=== PATIENT | female | born 1930 | race Caucasian/White ===

== ENCOUNTER 2017-04-30 14:18 | Inpatient (IN) | payer MEDICARE, OTHER ==
[~2017-04-30] VITALS: Ht 149.9 cm; Wt 49.9 kg
--- NOTE | 2017-04-30 14:30 | NUR ---
PATIENT HERE FROM [facility], SHE IS DEPRESSED, SHE IS TEARFUL. SHE IS ANGRY THAT STAFF TOOK HER SHOE LACES. SHE SAYS HER SONS NEVER SEE HER AND THEY ARE USING HER AND TOOK ALL OF HER THINGS, SHE IS CRYING AND SAYING HER SONS TOOK HER ANTIQUES. PATIENT SAYS I WILL LOOK STUPID WITHOUT SHOELACES. SHE IS NEGATIVE. SHE IS CONCERNED THAT HER LOOKS ARE STUPID NOW. PATIENT IS CONFUSED SHE IS ORIENTED TO SELF, SHE DOESN'T KNOW THE TIME OR THE YEAR. SHE IS SAYING NEGATIVE THINGS ABOUT [facility]. SHE HAS SOME SCARS ON HER RIGHT LOWER ABD FROM HERNIA REPAIR. SHE HAS SOME MISSING TOENAILS. SHE IS SAD AND SAYS SHE WISHES SHE WOULD , BUT DENIES THAT SHE EVER SAID SHE WOULD TAKE ALL OF HER MEDICATIONS. SHE SAYS SHE JUST WANTS TO LAY IN BED ALL DAY, DOES NOT WANT TO SOCIALIZE, DOES NOT WANT TO MAKE NEW FRIENDS. SHE MISSES [facility] IN [place]. SHE IS ALREADY SAYING "I'LL JUST STAY IN BED, IN MY ROOM AND STARVE" EXPLAINED TO HER THAT HERE SHE IS NOT ABLE TO STAY IN BED. SHE GOT VERY ANGRY AND SAID "YOU WANNA BET" DID NOT ARGUE WITH PATIENT SHE IS MUMBLING UNDER HER BREATH ABOUT HER SHOES.
[2017-04-30 14:55] VITALS: BP 127/64; BMI 22.1
[2017-04-30 15:00] VITALS: BMI 22.1
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
[2017-04-30] MEDS ORDERED: FUROSEMIDE20 MG PO (16:51)
[2017-04-30] MEDS ORDERED: BUSPAR10 MG PO (16:51)
[2017-04-30] MEDS ORDERED: LIPITOR80 MG PO (16:51)
[2017-04-30] MEDS ORDERED: FOLIC ACID1 MG PO (16:52)
[2017-04-30] MEDS ORDERED: ATIVAN0.5 MG PO (16:52)
[2017-04-30] MEDS ORDERED: LAMICTAL100 MG PO (16:53)
[2017-04-30] MEDS ORDERED: COREG12.5 MG PO (16:54)
[2017-04-30] MEDS ORDERED: REMERON15 MG PO (16:54)
[2017-04-30] MEDS ORDERED: ARICEPT5 MG PO (16:55)
[2017-04-30] MEDS ORDERED: VITAMIN B-12500 MC1 PO (16:55)
[2017-04-30] MEDS ORDERED: SENNA8.6 MG PO (16:56)
[2017-04-30] MEDS ORDERED: BAYER CHEWABLE81 MG PO (16:56)
[2017-04-30] MEDS ORDERED: COUMADIN2.5 MG PO (16:58)
[2017-04-30] MEDS ORDERED: ECOTRIN325 MG PO (16:58)
[2017-04-30] MEDS ORDERED: RESTASIS EYE DR30 EA EACH EYE (17:01)
[2017-04-30] MEDS ORDERED: MILK OF MAGNESI30 ML PO (17:02)
[2017-04-30] MEDS ORDERED: ZOFRAN4 MG PO (17:02)
[2017-04-30] MEDS ORDERED: VITAMIN D2 (17:04)
[2017-04-30 17:33] LABS: BASOPHILS 0.3 % (0-2); EOSINOPHILS 1.2 % (0-7); HEMATOCRIT 38.8 % (36.0-48.0); HEMOGLOBIN 12.7 g/dL (12-16); IMMATURE GRANULOCYTES 0.3 % (0-5); LYMPHOCYTES 32.6 % (15-50); MCH 34.1 pg (26.0-34.0); MCHC 32.7 g/dL (31.0-37.0); MCV 104.3 fL (80.0-100.0); MEAN PLATELET VOLUME 10.7 fL (7.4-10.4); NEUTROPHILS 52.6 % (40-80); PLATELET COUNT 132 10x3/uL (130-400); RBC 3.72 10x6/uL (4.00-5.40); RDW 14.5 % (11.5-14.5); WBC 7.2 10x3/uL (4.8-10.8)
[2017-04-30 17:57] LABS: ALBUMIN 2.5 g/dL (3.4-5.0); BILIRUBIN - TOTAL 0.6 mg/dL (0.2-1.3); CARBON DIOXIDE 26.5 mmol/L (21.0-32.0); CHOL - HDL RATIO 2.2 ratio (2.3-4.1); POTASSIUM - SERUM 4.5 mmol/L (3.5-5.1); PROTEIN - SERUM 6.9 g/dL (6.4-8.2); THYROID STIMULATING HORMONE 0.55 uIU/mL (0.36-3.74)
[2017-04-30 18:06] LABS: CALCIUM 8.9 mg/dL (8.5-10.1); CREATININE - SERUM 1.1 mg/dL (0.6-1.3)
[2017-04-30 19:29] LABS: APPEARANCE CLEAR (CLEAR); BILIRUBIN NEGATIVE (NEGATIVE); COLOR YELLOW (YELLOW); GLUCOSE NEGATIVE (NEGATIVE); KETONE NEGATIVE (NEGATIVE); LEUKOCYTE ESTERASE NEGATIVE (NEGATIVE); NITRITE NEGATIVE (NEGATIVE); PROTEIN NEGATIVE (NEGATIVE); UROBILINOGEN NORMAL (NORMAL)
[2017-04-30 20:02] VITALS: BP 120/67
[2017-04-30 21:23] VITALS: BP 120/67
--- NOTE | 2017-05-01 00:27 | NUR ---
B) Recieved patient in her room in bed, alert and oriented to self, calm and cooperative this shift, I) Administered perscribed medications, monitored for safety and falls, R) medication compliant, resting now quietly in bed, P) Continue plan of care.
[2017-05-01 06:54] LABS: INR 1.59 (0.85-1.17); PROTIME 18.9 SECONDS (11.6-15.0)
[2017-05-01 09:21] VITALS: BP 115/68
[2017-05-01 10:31] VITALS: BMI 22.0
--- NOTE | 2017-05-01 11:05 | NUR ---
B) PATIENT IS AWAKE AND ALERT, SHE PRESENTED SMILING AND HAPPY THIS AM, BUT NOW SHE IS IRRITABLE. SHE DOES NOT WANT TO PARTICIPATE IN GROUPS, BUT SHE IS DOING IT BEGRUDGINGLY. PATIENT AMBULATES WITH A WALKER. I) PROVIDE PRESCRIBED MEDS. R) PATIENT IS COMPLIANT WITH MEDS AND UNIT MILIEU. P) CONTINUE POC.
[2017-05-01 18:53] VITALS: BP 101/51
--- NOTE | 2017-05-01 22:31 | NUR ---
B) Recieved patient in her room, alert and oriented to self, calm and cooperative this shift, I) Administered perscribed medications, monitored for falls and safety, R) Medication compliant, quiet and resting, P) Continue plan of care.
[2017-05-02 07:25] LABS: RAPID PLASMA REAGIN Non Reactive (Non Reactive); VITAMIN D 25 HYDROXY 49.3 ng/mL (30.0-100.0)
[2017-05-02 08:20] LABS: FOLATE (FOLIC ACID) - SERUM >20.0 ng/mL (>3.0)
[2017-05-02 09:11] VITALS: BP 114/60
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
--- NOTE | 2017-05-02 11:06 | NUR ---
B) PATIENT IS AWAKE AND ALERT AND SHE IS PLEASANT AT THIS TIME, PATIENT IS LABILE IN MOOD, AFFECT IS REACTIVE. PATIENT AMBULATES WITH A WALKER. SHE IS PARTICIPATING MINIMALLY IN GROUPS AND ACTIVITIES. I) PROVIDE PRESCRIBED MEDS. R) PATIENT IS COMPLIANT WITH MEDS. NO MENTION OF DEPRESSION OR S.I. TODAY. P) CONTINUE POC.
[2017-05-02 19:30] VITALS: BP 115/86
--- NOTE | 2017-05-03 03:35 | NUR ---
B) Patient is calm and cooperative with care and assessment, alert and oriented to self, calm and quiet, I) Administered perscribed medications, monitored for safety, contracted for safety, R) Medication compliant, no S.I. this shift, P) Continue plan of care.
[2017-05-03 10:02] VITALS: BP 98/78
--- NOTE | 2017-05-03 11:00 | NUR ---
B) AWAKE AND ALERT THIS MORNING, AND IN A PLEASANT MOOD, VERY SOCIAL WITH PEERS AND STAFF. CALM AND COOPERATIVE WITH ASSESSMENT AND CARE. DENIES SELF HARM OR DEPRESSION. I) ADMINISTERED PRESCRIBED MEDICATIONS. REDIRECT AND REORIENT NEEDED. R) COMPLIANT WITH TAKING MEDICATIONS. MONITOR FOR SAFETY AND FALL PRECAUTIONS. P) CONTINUE PLAN OF CARE.
[2017-05-03 12:42] LABS: INR 1.35 (0.85-1.17); PROTIME 16.5 SECONDS (11.6-15.0)
[2017-05-03 19:30] VITALS: BP 99/72
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
--- NOTE | 2017-05-04 07:50 | NUR ---
ASSESSMENT COMPLETE. SITTING ON SIDE OF BED. ANGRY WITH SONS. MOOD PLEASNT UNLESS TALKING ABOUT FAMILY.
[2017-05-04 09:23] VITALS: BP 104/64
--- NOTE | 2017-05-04 15:02 | NUR ---
SITTING UP IN CHAIR. MOOD ANXIOUS AT THIS TIME DUE TO OTHER PATIENT'S ACTIONS. DENIES ANY NEEDS AT PRESENT.
[2017-05-04 19:30] VITALS: BP 109/83
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
[2017-05-05 07:48] VITALS: BP 143/78
[2017-05-05 07:54] LABS: INR 1.53 (0.85-1.17); PROTIME 18.3 SECONDS (11.6-15.0)
--- NOTE | 2017-05-05 09:48 | PN ---
PATIENT:CHRISTOPHER PRICE MEDICAL RECORD: [id number] LOCATION:[facility] ADMISSION DATE: 04/30/17 PROGRESS NOTE DATE OF SERVICE: 05/02/2017 SUBJECTIVE: The patient complains of various somatic ailments. OBJECTIVE: Staff reports the patient has shown lability of affect from time to time and at the time, she has been more euthymic. Additional history from the patient's son indicates that she most likely has a diagnosis of bipolar type 2, although this has not been formally made. The patient again shows evidence of a Cluster B personality traits. On exam, as of this morning, mood is euthymic, affect is shallow. Speech is tangential. Content of thought focuses on somatic concerns. Sensorium is unchanged. ASSESSMENT: No change in diagnosis. PLAN: 1. We will give neuropsychological testing. 2. Maintain current medications. 2. Continue supportive therapy. TRANSINT:[id number] Voice Confirmation ID: [id number] DOCUMENT ID: [id number] PACHECO ORO III, MD at 0948 CC: [id number] DICTATION DATE: 05/02/17 1226 FLEET OPERATIONS MANAGER: 05/02/17 2118 ADM IN [facility] [address] [place] [address]
--- NOTE | 2017-05-05 11:13 | NUR ---
ORIENTED TO PERSON AND PLACE. PT IS VERY [place] AND REQUIRES MULTIPLE ATTEMPTS WHEN COMMUNICATING WITH HER. NO AGGRESSION NOTED. PT IS PARTICIPATING IN GROUPS TODAY. MEDICATIONS GIVEN ORDERED. FALL PRECAUTIONS MAINTAINED. WILL CONTINUE TO MONITOR AND CONTINUE WITH PLAN OF CARE.
[2017-05-05 19:29] VITALS: BP 100/43
--- NOTE | 2017-05-06 02:24 | NUR ---
B) Patient alert and oriented to self and being in a hospital, calm and cooperative , RED DEVIL, self ambulates in wheelchair and walks short distances at times, I) Administered perscribed medications, monitored for falls, reminded patient to use her walker when ambulating, R) Medication compliant, sleeping in bed now, P) Continue plan of care.
--- NOTE | 2017-05-06 07:44 | NUR ---
PT IS CALM, COOPERATIVE WITH CARE. NO AGGRESSION NOTED. PT DOES MAKE RANDOM DELUSIONAL STATEMENTS. REORIENTED TO ENVIRONMENT AND REALITY. PT SHOWS NO EVIDENCE OF RETAINING EDUCATION AND REORIENTATION. MEDICATIONS GIVEN ORDERED. FALL PRECAUTIONS MAINTAINED. WILL CONTINUE TO MONITOR AND CONTINUE WITH PLAN OF CARE.
[2017-05-06 10:18] VITALS: BP 120/57
--- NOTE | 2017-05-06 10:54 | PN ---
PATIENT:CHRISTOPHER PRICE MEDICAL RECORD: [id number] LOCATION:[facility] ADMISSION DATE: 04/30/17 PROGRESS NOTE DATE OF SERVICE: 05/05/2017 SUBJECTIVE: No new complaint. OBJECTIVE: The patient has been fairly cooperative. She remains very hard of hearing. She has taken her medication as prescribed. The patient will be tested by Dr. Rodriguez tomorrow. On exam, mood is for the most part euthymic. Affect is bland. Speech is garrulous. Content of thought exhibits ideas of persecution. Sensorium shows no change. ASSESSMENT: No change in diagnosis. PLAN: 1. Maintain current medication. 2. Continue supportive therapy. TRANSINT:[id number] Voice Confirmation ID: [id number] DOCUMENT ID: [id number] PACHECO ORO III, MD at 1054 CC: [id number] DICTATION DATE: 05/05/17 1041 DAIRY FARMER: 05/05/172003 ADM IN [facility] [address] [place] [address]
--- NOTE | 2017-05-06 15:07 | NUR ---
Nutrition follow-up: Diet: Regular PO intake ~60% average of last 9 meals Labs reviewed +BM RDN following.
[2017-05-06 15:38] LABS: INR 1.92 (0.85-1.17)
--- NOTE | 2017-05-06 16:24 | NUR ---
contacted dr. rosado about increase lab value of PT and INR. was instructed to continue current dosage of coumadin.
[2017-05-06 19:30] VITALS: BP 116/46
--- NOTE | 2017-05-07 00:29 | NUR ---
B) Patient is alert and oriented to self, confused, pleasant and cooperative, I) Administered perscribed medications, monitored for falls and safety, R) Medication compliant, P) Continue plan of care.
[2017-05-07 05:49] LABS: INR 2.07 (0.85-1.17); PROTIME 23.3 SECONDS (11.6-15.0)
[2017-05-07 08:37] VITALS: BP 103/58
--- NOTE | 2017-05-07 10:25 | PN ---
PATIENT:CHRISTOPHER PRICE MEDICAL RECORD: [id number] LOCATION:[facility] ADMISSION DATE: 04/30/17 PROGRESS NOTE DATE OF SERVICE: 05/06/2017 SUBJECTIVE: No new complaint. OBJECTIVE: The patient is showing overall improvement. Affect has been pleasant. Eating has improved. The patient is tolerating medication well. A letter has been dictated indicating that the patient should no longer operate motor vehicles due to her dementia. On exam, mood is euthymic. Affect is bland. Speech is somewhat hesitant (the patient is very hard of hearing). Content of thought is negative for overt psychosis. Sensorium unchanged. ASSESSMENT: No change in diagnosis. PLAN: 1. Continue all current medications. 2. Continue supportive therapy. TRANSINT:[id number] Voice Confirmation ID: [id number] DOCUMENT ID: [id number] PACHECO ORO III, MD at 1025 CC: [id number] DICTATION DATE: 05/06/17 1148 BLOCK AND CASE MAKER: 05/06/17 1239 ADM IN [place] [id number] [place] [id number]
--- NOTE | 2017-05-07 11:03 | NUR ---
B) Rec'd pt in dining room, alert, pleasant mood, cooperative. Feeds self without difficulty, appetite fair. I) Admin meds as ordered and provide group therapy as directed. R) No s/s adverse reaction to meds, actively participates in group. P) Cont plan of care including meds and group therapy.
[2017-05-07 21:41] VITALS: BP 98/40
--- NOTE | 2017-05-08 01:03 | NUR ---
B) Recieved patient in the day room, alert and oriented to self and hospital, calm and cooperative with staff, I) Administered perscribed medications, monitored for falls, R) Medication compliant, resting quietly now, P) Continue plan of care.
--- NOTE | 2017-05-08 03:51 | PN ---
PATIENT:CHRISTOPHER PRICE MEDICAL RECORD: [id number] LOCATION:[facility] ADMISSION DATE: 04/30/17 PROGRESS NOTE DATE OF SERVICE: 05/07/2017 SUBJECTIVE: No new complaint. OBJECTIVE: The patient is doing well. She is tolerating medications. She is not showing overt psychosis. On exam, mood is euthymic. Affect is bland. Speech is tangential. Content of thought as noted above. Sensorium unchanged. ASSESSMENT: No change in diagnosis. PLAN: 1. Maintain current medication. 2. Continue supportive therapy. TRANSINT:[id number] Voice Confirmation ID: [id number] DOCUMENT ID: [id number] PACHECO ORO III, MD at 0351 CC: [id number] DICTATION DATE: 05/07/17 1115 AIRCRAFT CHARTER DISPATCHER: 05/07/17 1747 ADM IN [facility] [address] [place] [address]
[2017-05-08 05:33] LABS: INR 2.05 (0.85-1.17); PROTIME 23.1 SECONDS (11.6-15.0)
--- NOTE | 2017-05-08 07:50 | NUR ---
ASSESSMENT COMPLETE. INCONT OF BLADDER AT TIMES. MOOD PLEASANT THIS AM. WORRYING ABOUT WHICH PANTS TO WEAR FOR THE DAY.
[2017-05-08 08:16] VITALS: BP 129/76
--- NOTE | 2017-05-08 14:15 | NUR ---
Nutrition Follow Up: Pt is eating 76% meal avg on a regular diet. She is receiving Ensure TID. +BM 05/07/17. No new wt to assess. Meds noted including Lasix. No new labs to assess. Rec continue current diet, supplement regimen. RD following.
[2017-05-08 19:52] VITALS: BP 112/82
--- NOTE | 2017-05-08 20:30 | NUR ---
B) AWAKE AND ALERT, ORIENTED TO SELF, [place], CALM AND COOPERATIVE WITH CARE AND ASSESSMENT. AMBULATES WITH A WALKER OR WHEELCHAIR. PLEASANT MOOD. I) ADMINISTERED PRESCRIBED MEDICATIONS. REDIRECT TO REALITY NEEDED. VSS. R) COMPLIANT WITH TAKING MEDS AND UNIT MILIEU. MAINTAIN FALL PRECAUTIONS. P) WILL CONTINUE WITH PLAN OF CARE.
[2017-05-09 07:43] LABS: INR 2.06 (0.85-1.17); PROTIME 23.3 SECONDS (11.6-15.0)
[2017-05-09 08:46] VITALS: BP 108/64
--- NOTE | 2017-05-09 10:52 | NUR ---
B) PATIENT IS AWAKE AND ALERT AND SHE IS PLEASANT SHE DID TEST WITH DR. SEBASTIAN TODAY AND SHE DID NOT FARE WELL, PATIENT IS VERY CONFUSED. SHE HAS NO INSIGHT INTO HER ILLNESS. SHE AMBULTES WITH A WALKER INDEPENDENTLY. I) PROVIDE PRESCRIBED MEDS AND REDIRECT NEEDED. R) PATIENT IS COMPLIANT WITH MEDS AND UNIT MILIEU. P) CONTINUE POC.
[2017-05-09 19:30] VITALS: BP 121/83
--- NOTE | 2017-05-09 20:00 | NUR ---
ASSESSMENT COMPLETED. AWAKE AND ALERT IN DAYROOM, BUT VERY CONFUSED. VSS. NO AGITATION OR AGGRESION NOTED TONIGHT. MEDICATIONS ADMINISTERED. COMPLIANT WITH MEDS AND UNIT MILIEU. WILL CONTINUE POC.
[2017-05-10 07:22] LABS: INR 1.83 (0.85-1.17); PROTIME 21.2 SECONDS (11.6-15.0)
[2017-05-10 09:07] VITALS: BP 129/64
--- NOTE | 2017-05-10 10:43 | PN ---
PATIENT:CHRISTOPHER PRICE MEDICAL RECORD: [id number] LOCATION:[facility] ADMISSION DATE: 04/30/17 PROGRESS NOTE DATE OF SERVICE: 05/09/2017 SUBJECTIVE: The patient's case was discussed with staff. She has no new complaint. OBJECTIVE: The patient denies intent to harm herself or others. She does tolerate her medicines well. Unfortunately, she has been tested by Dr. Marcelina Rodriguez and scores 13/30. She is in the moderate to severe range of impairment. ASSESSMENT: No change in diagnoses. PLAN: Current medicines have been reviewed and will be maintained. Long-term prognosis is guarded. TRANSINT:[id number] Voice Confirmation ID: [id number] DOCUMENT ID: [id number] EVAN JAEGER MD at 1043 CC: [id number] DICTATION DATE: 05/09/17 1238 FOOT TENDER: 05/09/17 1730 ADM IN [place] [id number] [place] [address]
--- NOTE | 2017-05-10 11:41 | NUR ---
B) PATIENT IS SAD TODAY, SHE SAID THE OTHER NIGHT A LADY WAS MEAN TO ME AND SHE IS CRYING ABOUT THAT. THEN SHE STARTED GETTING UPSET ABOUT HER SON. PATIENT AMBULATES INDEPENDENTLY WITH A WALKER. I) PROVIDE PRESCRIBED MEDS. R) PATIENT IS COMPLIANT WITH MEDS. P) CONTINUE POC.
[2017-05-10 19:30] VITALS: BP 106/54
--- NOTE | 2017-05-10 20:30 | NUR ---
B) RECEIVED IN DAYROOM RESTING IN RECLINER WITH EYES CLOSED. CALM AND COOPERATIVE WITH ASSESSMENT. I) ADMINISTERED PRESCRIBED MEDICATIONS. VSS. R) MEDICATION COMPLIANT AND READY TO GO TO BED. P) CONTINUE POC.
[2017-05-11 07:00] VITALS: BP 122/54
[2017-05-11 09:41] VITALS: Ht 149.9 cm; Wt 49.9 kg
--- NOTE | 2017-05-11 09:42 | NUR ---
PT IS CALM,COOPERATIVE. ORIENTED TO PERSON ONLY. FREQUENT REDIRECTION USED BUT PT SHOWS LIMITED INSIGHT INTO EDUCATION. MEDICATIONS GIVEN ORDERED. NO AGGRESSION NOTED. PT SOCIAL WITH STAFF AND OTHER PTS. POSITIVE REINFORCEMENT GIVEN FOR BEHAVIOR. FALL PRECAUTIONS MAINTAINED. WILL CONTINUE TO MONITOR AND CONTINUE WITH PLAN OF CARE.
[2017-05-11 11:00] LABS: INR 1.84 (0.85-1.17); PROTIME 21.2 SECONDS (11.6-15.0)
--- NOTE | 2017-05-11 11:36 | PN ---
PATIENT:CHRISTOPHER PRICE MEDICAL RECORD: [id number] LOCATION:[facility] ADMISSION DATE: 04/30/17 PROGRESS NOTE DATE OF SERVICE: 05/10/2017 Psychiatric Progress Note SUBJECTIVE: The patient's case was discussed with staff. She has no new complaint. OBJECTIVE: The patient is in good behavioral control with limited insight about her condition. She generally tolerates her medicines well. She is significantly and seriously impaired cognitively. She has had relatively good mood regulation. ASSESSMENT: No change in diagnoses. PLAN: Supportive and educational interventions were made. The patient's long-term prognosis is guarded. TRANSINT:[id number] Voice Confirmation ID: [id number] DOCUMENT ID: [id number] EVAN JAEGER MD at 1136 CC: [id number] DICTATION DATE: 05/10/17 1055 SASH FINISHER: 05/10/17 1117 ADM IN [place] [id number] [place] [id number]
[2017-05-11 19:30] VITALS: BP 130/67
--- NOTE | 2017-05-12 02:32 | NUR ---
B) Patient alert and oriented to self, calm and cooperative with care and assessment, social with staff and peers, I) Administered perscribed medications, monitored for falls and safety, R) Medication compliant, no behaviors noted, P) Continue plan of care.
[2017-05-12 08:13] VITALS: BP 147/70
--- NOTE | 2017-05-12 10:30 | PN ---
PATIENT:CHRISTOPHER PRICE MEDICAL RECORD: [id number] LOCATION:[facility] ADMISSION DATE: 04/30/17 PROGRESS NOTE DATE OF SERVICE: 05/08/2017 SUBJECTIVE: No new complaint. OBJECTIVE: The patient continues to do well. She is hard of hearing, but responds well when staff speaks directly to her. She is tolerating medications without difficulty. On exam, mood is euthymic. Affect is bland. Speech is somewhat tangential. Content of thought shows no overt psychosis. Sensorium is unchanged. ASSESSMENT: No change in diagnosis. PLAN: 1. Continue all current medications. 2. Continue supportive therapy. TRANSINT:[id number] Voice Confirmation ID: [id number] DOCUMENT ID: [id number] PACHECO ORO III, MD at 1030 CC: [id number] DICTATION DATE: 05/08/17 1118 BULLET SWAGING MACHINE OPERATOR: 05/08/17 1212 ADM IN [place] [id number] [place] [address]
[2017-05-12] MEDS ORDERED: TRAZODONE HCL50 MG PO (11:09)
[2017-05-12] MEDS ORDERED: VITAMIN D5000 UNIT PO (11:10)
--- NOTE | 2017-05-12 11:21 | NUR ---
PT IS CALM, COOPERATIVE. ORIENTED TO PERSON ONLY. REDIRECTED NEEDED. DISCHARGE PAPERWORK REVIEWED AND FAXED TO [facility]. WARP SPOOLER REVIEWED DISCHARGE PLANS AND INSTRUCTION WITH SON. ALL BELONGINGS SENT WITH PT. MEDICATIONS GIVEN ORDERED. VSS.
--- NOTE | 2017-05-12 14:00 | NUR ---
Patient discharged to [facility] via thier transportation. Discharge instructions given with understanding verbalized. No incident. Personal belongings released to patient.
--- NOTE | 2017-05-12 15:40 | NUR ---
MILAN SPOKE WITH PT'S SON, GLORIA, ABOUT DISCHARGING PLANNING. PT WILL RETURN TO INDEPENDENT LIVING WITH SON ADMINISTERING MEDICATION UNTIL PLACEMENT WITH ALTERNATIVE LIVING SITUATION. GLORIA STATED HE IS TRYING TO GET RESOURCES TO HELP SUPPLEMENT HER INCOME TO PAY FOR ASSISTED LIVING.
--- NOTE | 2017-05-13 10:17 | DS ---
PATIENT:CHRISTOPHER PRICE :[birth year] MEDICAL RECORD: [id number] DISCHARGE SUMMARY ADMISSION DATE: 04/30/17 DISCHARGE DATE: 05/12/17 DATE OF ADMISSION: 04/30/2017 DATE OF DISCHARGE: 05/12/2017 HISTORY OF PRESENT ILLNESS: First known psychiatric hospitalization for this 87-year-old white female. She is a resident of [facility]. The patient had reportedly been making suicidal statements prior to transfer here. She does have a past history of mood disorder. She did exhibit some paranoid ideation on admission. For further details, please see previously dictated history. COURSE IN THE HOSPITAL: The patient was seen in consultation by Dr. Helton. He addressed various ongoing medical problems including hypertension, vitamin B12 deficiency, osteoporosis and atrial fibrillation. Medication management was undertaken. It was elected to discontinue previous dose of Remeron and start the patient on trazodone 50 mg twice a day for control of her affective symptoms. She responded very well to this and no further adjustment was needed. Aside from this, the patient was kept on her nonpsychiatric medications as well as Aricept 10 mg at bed time for memory problems. During the hospitalization, the patient did fairly well; contact was maintained with family. By the time of discharge, the patient was stable and ready to return to [facility]. FINAL DIAGNOSES: AXIS I: Alzheimer dementia with behavioral disturbance, secondary depression. AXIS II: No diagnosis. AXIS III: Hypertension, osteoporosis, vitamin B12 deficiency, cardiac arrhythmias, and hearing impairment. AXIS IV: Moderate. AXIS V: 44. PLAN: 1. The patient is discharged on current medication. 2. Diet and activities as tolerated. 3. Follow up through primary care physician assigned to the intermediate. TRANSINT:[id number] Voice Confirmation ID: [id number] DOCUMENT ID: [id number] PACHECO ORO III, MD at 1017 CC: [id number] DICTATION DATE: 05/12/17 1115 PROJECTION PRINTER: 05/12/[id number] DIS IN 05/12/17 [place] [address] [place] [address]
== END 2017-05-12 14:00 | disposition home or self-care (01) | DRG 57 ==
LOC: D.PSYCH 14:18
PROVIDERS: Family Medicine; ADMIT Psychiatry & Neurology Psychiatry
DX: G30.9 Alzheimer's disease, unspecified (principal); F02.81 Dementia in other diseases classified elsewhere, unspecified severity, with behavioral disturbance; F41.8 Other specified anxiety disorders; E78.5 Hyperlipidemia, unspecified; M19.90 Unspecified osteoarthritis, unspecified site; I48.91 Unspecified atrial fibrillation; Z74.09 Other reduced mobility; H91.90 Unspecified hearing loss, unspecified ear; I10 Essential (primary) hypertension; M81.0 Age-related osteoporosis without current pathological fracture; E53.8 Deficiency of other specified B group vitamins; Z95.0 Presence of cardiac pacemaker

== ENCOUNTER 2017-09-24 17:30 | Inpatient (IN) | payer MEDICARE, OTHER ==
[~2017-09-24] VITALS: Ht 149.9 cm; Wt 41.0 kg
--- NOTE | ~2017-09-24 | PN ---
PATIENT:CHRISTOPHER PRICE MEDICAL RECORD: [id number] LOCATION:[facility] ADMISSION DATE: 09/24/17 PROGRESS NOTE DATE OF SERVICE: 09/26/2017 SUBJECTIVE: The patient's case was discussed with staff. She has no new complaint. OBJECTIVE: The patient is in good behavioral control with limited insight about her condition. She tolerates her medicines well. Eye contact is fair. The patient is severely impaired cognitively. Regarding her behaviors. She has not been aggressive today. ASSESSMENT: No change in diagnoses. PLAN: I am going to start the patient on a low dose of Namenda. Her long-term prognosis is guarded. Brief supportive and educational interventions were made. TRANSINT:[id number] Voice Confirmation ID: [id number] DOCUMENT ID: [id number] EVAN JAEGER MD at 0944 CC: [id number] DICTATION DATE: 09/26/17 1227 ROLLER PNEUMATIC: 09/26/17 1237 ADM IN [id number] [place] [address]
--- NOTE | ~2017-09-24 | PN ---
PATIENT:CHRISTOPHER PRICE MEDICAL RECORD: [id number] [facility] ADMISSION DATE: 09/24/17 PROGRESS NOTE DATE OF SERVICE: 10/06/2017 SUBJECTIVE: The patient's case was discussed with staff. She has no new complaint. OBJECTIVE: The patient is confused and only partially oriented. She has limited insight about her condition. ASSESSMENT: No change in diagnoses. PLAN: Brief supportive and educational interventions were made. Intermediate prognosis is guarded. TRANSINT:[id number] Voice Confirmation ID: [id number] DOCUMENT ID: [id number] EVAN JAEGER MD at 1457 CC: [id number] DICTATION DATE: 10/06/17 1112 DIRECTOR OF RESPIRATORY THERAPY: 10/06/17 1126 ADM IN [id number] [place] [address]
--- NOTE | ~2017-09-24 | PN ---
PATIENT:CHRISTOPHER PRICE MEDICAL RECORD: [id number] LOCATION:[facility] ADMISSION DATE: 09/24/17 PROGRESS NOTE DATE OF SERVICE: 10/04/2017 SUBJECTIVE: The patient's case was discussed with staff. She has no new complaint. OBJECTIVE: The patient denies intent to harm herself or others. She tolerates her medicines well. Eye contact is poor. ASSESSMENT: No change in diagnoses. PLAN: The patient is severely impaired cognitively, but from a behavioral standpoint, she is doing well. Her long-term prognosis is guarded. TRANSINT:[id number] Voice Confirmation ID: [id number] DOCUMENT ID: [id number] EVAN JAEGER MD at 1101 CC: [id number] DICTATION DATE: 10/04/17 1216 BOLOGNA MAKER: 10/04/17 1240 ADM IN [address] [place] [address]
--- NOTE | ~2017-09-24 | PN ---
PATIENT:CHRISTOPHER PRICE MEDICAL RECORD: [id number] LOCATION:[facility] ADMISSION DATE: 09/24/17 PROGRESS NOTE DATE OF SERVICE: 09/27/2017 SUBJECTIVE: The patient's case was discussed with staff. She has no new complaint. OBJECTIVE: The patient is in good behavioral control, but very delusional. She has limited insight about her condition. ASSESSMENT: No change in diagnosis. PLAN: Brief supportive and educational interventions were made. Long Term prognosis is guarded. I am going to start her on a low dose of Trilafon to assist with her thought disorganization. TRANSINT:[id number] Voice Confirmation ID: [id number] DOCUMENT ID: [id number] EVAN JAEGER MD at 1105 CC: [id number] DICTATION DATE: 09/27/17 1004 RECOVERY RN: 09/27/17 1244 ADM IN [id number] [place] [address]
--- NOTE | ~2017-09-24 | DS ---
PATIENT:CHRISTOPHER PRICE :[birth year] MEDICAL RECORD: [id number] DISCHARGE SUMMARY ADMISSION DATE: 09/24/17 DISCHARGE DATE: 10/08/17 IDENTIFYING DATA: The patient is 87 years old and she was admitted to the hospital on a voluntary basis secondary to agitation. The patient had presented to the Emergency Room at [facility] because she was agitated. She was evaluated there and subsequently referred to us. She was cleared medically and neurologically. She had a history of dementia and had been aggressive. The patient had little recollection of this and was admitted to the hospital. HOSPITAL COURSE: The patient was admitted to the hospital and fully evaluated from both a medical, psychological, and social standpoint. She was treated with both mood stabilizing and memory enhancing medications and showed significant improvement. She [facility]. DISCHARGE DIAGNOSES: AXIS I: Senile dementia of the Alzheimer's type with behavioral disturbances. AXIS II: None. AXIS III: Hypertension, osteoporosis, atrial fibrillation, hyperlipidemia, chronic kidney disease, coronary artery disease and a recent hip fracture. AXIS IV: Moderate stressors. AXIS V: Global assessment of functioning is 35. PLAN: At the time of discharge, the patient was in good behavioral control. She had limited insight about her condition and was tolerating her medications well. Her long-term prognosis is guarded. TRANSINT:[id number] Voice Confirmation ID: [id number] DOCUMENT ID: [id number] EVAN JAEGER MD at 1418 CC: [id number] DICTATION DATE: 10/09/17 1244 PERSONAL LINES UNDERWRITER: 10/09/17 1633 DIS IN 10/08/17 [address] [place] [address]
--- NOTE | ~2017-09-24 | PN ---
PATIENT:CHRISTOPHER PRICE MEDICAL RECORD: [id number] LOCATION:[facility] ADMISSION DATE: 09/24/17 PROGRESS NOTE DATE OF SERVICE: 09/28/2017 SUBJECTIVE: The patient's case was discussed with staff. She has no new complaint. OBJECTIVE: The patient is in good behavioral control. She has not been aggressive. ASSESSMENT: No change in diagnoses. PLAN: Current medicines and therapies have been reviewed and will be maintained. Long-term prognosis is guarded. TRANSINT:[id number] Voice Confirmation ID: [id number] DOCUMENT ID: [id number] EVAN JAEEGR MD at 1156 CC: [id number] DICTATION DATE: 09/28/17 1208 STITCHER TAPE CONTROLLED MACHINE: 09/28/17 1238 ADM IN [address] [place] [address]
--- NOTE | ~2017-09-24 | PN ---
PATIENT:CHRISTOPHER PRICE MEDICAL RECORD: [id number] LOCATION:[facility] ADMISSION DATE: 09/24/17 PROGRESS NOTE DATE OF SERVICE: 10/07/2017 SUBJECTIVE: The patient's case was discussed with staff. She has no new complaint. OBJECTIVE: The patient has shown significant improvement, I anticipate she can be transitioned out of the hospital soon. ASSESSMENT: No change in diagnoses. PLAN: Current medicines have been reviewed and will be maintained. Long-term prognosis is guarded. Supportive and educational interventions were made. TRANSINT:[id number] Voice Confirmation ID: [id number] DOCUMENT ID: [id number] EVAN JAEGER MD at 0808 CC: [id number] DICTATION DATE: 10/07/17 1510 PILOT CAN ROUTER: 10/07/17 1548 ADM IN [id number] [place] [address]
--- NOTE | ~2017-09-24 | PN ---
PATIENT:CHRISTOPHER PRICE MEDICAL RECORD: [id number] LOCATION:[facility] ADMISSION DATE: 09/24/17 PROGRESS NOTE DATE OF SERVICE: 10/02/2017 SUBJECTIVE: The patient's case was discussed with staff. She has no new complaint. OBJECTIVE: The patient is in good behavioral control with limited insight about her condition. She tolerates her medicines well. ASSESSMENT: No change in diagnoses. PLAN: Brief supportive and educational interventions were made. Long-term prognosis is guarded. I anticipate she can be transitioned out of the hospital soon. TRANSINT:[id number] Voice Confirmation ID: [id number] DOCUMENT ID: [id number] EVAN JAEGER MD at 1303 CC: [id number] DICTATION DATE: 10/02/17 1349 ADMINISTRATIVE SPECIALIST: 10/02/17 1417 ADM IN [address] [place] [address]
--- NOTE | ~2017-09-24 | PN ---
PATIENT:CHRISTOPHER PRICE MEDICAL RECORD: [id number] LOCATION:[facility] ADMISSION DATE: 09/24/17 PROGRESS NOTE DATE OF SERVICE: 09/30/2017 SUBJECTIVE: The patient's case was discussed with staff. She has no new complaint. OBJECTIVE: The patient is in good behavioral control with limited insight about her condition. She generally tolerates her medicines well. She is severely impaired cognitively, but has not been aggressive. She did sleep 10 hours last night. ASSESSMENT: No change in diagnoses. PLAN: Supportive and educational interventions were made. Halfway prognosis is guarded. TRANSINT:[id number] Voice Confirmation ID: [id number] DOCUMENT ID: [id number] EVAN JAEGER MD at 1317 CC: [id number] DICTATION DATE: 09/30/17 1231 BODY TRIMMER UPHOLSTERER: 09/30/17 1315 ADM IN [facility] [address] [place] [address]
--- NOTE | ~2017-09-24 | PN ---
PATIENT:CHRISTOPHER PRICE MEDICAL RECORD: [id number] LOCATION:[facility] ADMISSION DATE: 09/24/17 PROGRESS NOTE DATE OF SERVICE: 10/08/2017 SUBJECTIVE: The patient's case was discussed with staff. She has no new complaint. OBJECTIVE: The patient denies intent to harm herself or others. She generally tolerates her medicines well. Eye contact is fair. ASSESSMENT: No change in diagnoses. PLAN: Brief supportive and educational interventions were made. The patient's long-term prognosis is guarded. TRANSINT:[id number] Voice Confirmation ID: [id number] DOCUMENT ID: [id number] EVAN JAEGER MD at 1240 CC: [id number] DICTATION DATE: 10/08/17 1248 CHEMIST ORGANIC: 10/08/17 1308 DIS IN 10/08/17 [address] [place] [address]
--- NOTE | ~2017-09-24 | PN ---
PATIENT:CHRISTOPHER PRICE MEDICAL RECORD: [id number] LOCATION:[facility] ADMISSION DATE: 09/24/17 PROGRESS NOTE DATE OF SERVICE: 10/03/2017 SUBJECTIVE: The patient's case was discussed with staff. She has no new complaint. OBJECTIVE: The patient denies intent to harm herself or others. She tolerates her medicines well. ASSESSMENT: No change in diagnoses. PLAN: The patient will be transitioned to a rehabilitation unit soon. The one that she was thought to be going to today change their mind and at the last minute declined her. Although, that is a little frustrating, I think the reasoning was valid. She is not following consistent directions and I think it would be a challenge to have her participate in 3 hours of therapy daily. TRANSINT:[id number] Voice Confirmation ID: [id number] DOCUMENT ID: [id number] EVAN JAEGER MD at 1204 CC: [id number] DICTATION DATE: 10/03/17 1313 INSPECTOR SUBASSEMBLIES: 10/03/17 1327 ADM IN [address] [place] [address]
--- NOTE | ~2017-09-24 | PN ---
PATIENT:CHRISTOPHER PRICE MEDICAL RECORD: [id number] LOCATION:[facility] ADMISSION DATE: 09/24/17 PROGRESS NOTE DATE OF SERVICE: 10/01/2017 SUBJECTIVE: The patient's case was discussed with staff. She has no new complaint. OBJECTIVE: The patient is in good behavioral control with limited insight about her condition. She has not been aggressive. ASSESSMENT: No change in diagnoses. PLAN: I anticipate the patient can be transitioned out of the hospital soon if this level of improvement is maintained. Her long-term prognosis is guarded. TRANSINT:[id number] Voice Confirmation ID: [id number] DOCUMENT ID: [id number] EVAN JAEGER MD at 1322 CC: [id number] DICTATION DATE: 10/01/17 1330 MARINE ARCHITECT: 10/01/17 1353 ADM IN [facility] [address] [place] [address]
--- NOTE | ~2017-09-24 | PSY ---
PATIENT NAME:CHRISTOPHER PRICE MEDICAL RECORD: [id number] : [birth year] LOCATION:[facility] ADMISSION DATE: 09/24/17 ACCOUNT: [id number] PSYCHIATRIC EVALUATION DATE OF EVALUATION: 09/25/17 IDENTIFYING DATA: The patient is 87 years old and she is admitted to the hospital on a voluntary basis. CHIEF COMPLAINT: Agitation. HISTORY OF PRESENT ILLNESS: The patient initially presented to the Emergency Room at [facility] because of some agitation. She was evaluated there and then subsequently referred to us. She has a history of dementia and has been quite aggressive. She also was hospitalized here on this behavioral unit previously because of significant agitated behavior. At the time I interviewed her, she has no recollection of that and she is calm. PAST MEDICAL HISTORY: Significant for some mild to moderate hearing loss. She also has hyperlipidemia, hypertension, and a pacemaker placement. PAST PSYCHIATRIC HISTORY: Significant for an established diagnosis of dementia. The patient has been previously hospitalized with some on occasion. FAMILY HISTORY: Unknown. The patient denies any family psychiatric history, but she is very unreliable. ALLERGIES: No known drug allergies. CURRENT MEDICATIONS: Include trazodone, multiple vitamins, Lipitor, Lamictal, Coreg, Senokot, Ecotrin, Restasis, BuSpar, Remeron, Aricept, folic acid, and Zofran. SOCIAL HISTORY: The patient is a nondrinker, nonsmoker. She is . She does have adult children involved with her care. Her long-term prognosis is guarded and she apparently functioned well socially and occupationally. MENTAL STATUS EXAMINATION: The patient is awake, alert, and oriented to person and place only. Her mood is flat. Her affect is constricted. Thought processes are circumstantial. Memory, concentration, and abstraction abilities are moderately impaired and she denies any active intent to harm herself or others as well as any overt psychotic symptoms. ASSETS: Supportive family members. LIABILITIES: Limited insight. DIAGNOSTIC IMPRESSION: AXIS I: Senile dementia of the Alzheimer's type with behavioral disturbances. AXIS II: None. AXIS III: Hypertension, osteoporosis, atrial fibrillation, hyperlipidemia, chronic kidney disease, coronary artery disease, and a recent hip fracture. AXIS IV: Moderate stressors. AXIS V: Global assessment of functioning is 30. PLAN: At this time, the patient is admitted to the hospital for a comprehensive medical, psychological, and social evaluation. She will be treated with both mood stabilizing and memory enhancing medications. Her long-term prognosis is guarded. TRANSINT:[id number] Voice Confirmation ID: [id number] DOCUMENT ID: [id number] EVAN JAEGER MD at 0926 CC: [id number] DICTATION DATE: 09/25/17 1415 MASON LINER: 09/25/17 1509 ADM IN [id number] [place] [address]
[~2017-09-24 17:30] MED LIST: ARICEPT5 MG PO; ATIVAN0.5 MG PO; BAYER CHEWABLE81 MG PO; BUSPAR10 MG PO; COREG12.5 MG PO; COUMADIN2.5 MG PO; ECOTRIN325 MG PO; FOLIC ACID1 MG PO; FUROSEMIDE20 MG PO; LAMICTAL100 MG PO; LIPITOR80 MG PO; MILK OF MAGNESI30 ML PO; REMERON15 MG PO; RESTASIS EYE DR30 EA EACH EYE; SENNA8.6 MG PO; TRAZODONE HCL50 MG PO; VITAMIN B-12500 MC1 PO; VITAMIN D2; VITAMIN D5000 UNIT PO; ZOFRAN4 MG PO
[2017-09-24 19:30] VITALS: BP 118/85
[2017-09-25 05:33] VITALS: BP 118/85; BMI 18.2
[2017-09-25] MEDS ORDERED: FOLIC ACID1 MG PO (06:10)
[2017-09-25] MEDS ORDERED: OMNICEF300 MG PO (06:17)
[2017-09-25] MEDS ORDERED: REMERON15 MG PO (06:18)
[2017-09-25] MEDS ORDERED: BUSPAR10 MG PO (06:18)
[2017-09-25] MEDS ORDERED: ERGOCALCIF50000 UNI1 PO (06:20)
[2017-09-25 07:29] LABS: BASOPHILS 0.1 % (0-2); EOSINOPHILS 1.3 % (0-7); HEMATOCRIT 37.8 % (36.0-48.0); HEMOGLOBIN 12.7 g/dL (12-16); IMMATURE GRANULOCYTES 0.4 % (0-5); LYMPHOCYTES 18.2 % (15-50); MCH 33.7 pg (26.0-34.0); MCHC 33.6 g/dL (31.0-37.0); MCV 100.3 fL (80.0-100.0); MEAN PLATELET VOLUME 9.8 fL (7.4-10.4); MONOCYTES 13.4 % (2-11); NEUTROPHILS 66.6 % (40-80); RBC 3.77 10x6/uL (4.00-5.40); RDW 13.7 % (11.5-14.5); WBC 7.8 10x3/uL (4.8-10.8)
[2017-09-25 07:34] LABS: PLATELET COUNT 180 10x3/uL (130-400)
[2017-09-25 07:47] LABS: HEMOGLOBIN A1C 4.7 % (4.8-6.0)
[2017-09-25 07:51] LABS: ALBUMIN 3.1 g/dL (3.4-5.0); BILIRUBIN - TOTAL 0.94 mg/dL (0.2-1.3); CALCIUM 9.1 mg/dL (8.5-10.1); CARBON DIOXIDE 27.4 mmol/L (21.0-32.0); CHOL - HDL RATIO 2.1 ratio (2.3-4.1); CREATININE - SERUM 0.9 mg/dL (0.6-1.3); LDL-HDL RATIO 0.8 ratio (1.5-3.5); POTASSIUM - SERUM 3.4 mmol/L (3.5-5.1); PROTEIN - SERUM 6.7 g/dL (6.4-8.2); THYROID STIMULATING HORMONE 2.37 uIU/mL (0.36-3.74)
[2017-09-25 08:00] VITALS: BP 141/67
[2017-09-25 09:53] VITALS: BMI 18.2
[2017-09-25 10:22] VITALS: Ht 149.9 cm; Wt 41.0 kg
[2017-09-25 13:32] LABS: INR 3.18 (0.85-1.17); PROTIME 31.8 SECONDS (11.6-15.0)
[2017-09-25 21:29] VITALS: BP 123/78
[2017-09-26 05:14] LABS: RAPID PLASMA REAGIN Non Reactive (Non Reactive)
[2017-09-26 07:25] LABS: VITAMIN D 25 HYDROXY 42.6 ng/mL (30.0-100.0)
[2017-09-26 08:18] LABS: FOLATE (FOLIC ACID) - SERUM >20.0 ng/mL (>3.0)
[2017-09-26 09:32] VITALS: BP 113/73
[2017-09-26 10:51] LABS: INR 1.91 (0.85-1.17); PROTIME 21.3 SECONDS (11.6-15.0)
[2017-09-26 19:35] VITALS: BP 83/49
[2017-09-27 10:20] VITALS: BP 125/49
[2017-09-27 20:03] VITALS: BP 112/61
[2017-09-28 03:40] LABS: APPEARANCE CLEAR (CLEAR); BACTERIA NONE SEEN /hpf (NONE SEEN); BILIRUBIN NEGATIVE (NEGATIVE); COLOR YELLOW (YELLOW); EPITHELIAL CELLS RARE /hpf (0-5); GLUCOSE NEGATIVE (NEGATIVE); KETONE NEGATIVE (NEGATIVE); NITRITE NEGATIVE (NEGATIVE); PROTEIN TRACE mg/dL (NEGATIVE); RED CELLS - URINE 0-5 /hpf (0-5); SPECIFIC GRAVITY 1.015 (1.005-1.020); UROBILINOGEN NORMAL (NORMAL); WHITE CELLS - URINE NSEEN /hpf (0-5)
[2017-09-28 07:00] VITALS: BP 116/48
[2017-09-28 19:53] VITALS: BP 103/53
[2017-09-29 07:36] LABS: INR 1.68 (0.85-1.17); PROTIME 19.3 SECONDS (11.6-15.0)
[2017-09-29 08:22] VITALS: BP 140/069
[2017-09-29 19:21] VITALS: BP 112/45
[2017-09-30 07:00] VITALS: BP 151/73
[2017-09-30 07:24] LABS: INR 1.71 (0.85-1.17); PROTIME 19.6 SECONDS (11.6-15.0)
[2017-09-30 19:46] VITALS: BP 109/52
[2017-10-01 08:55] VITALS: BP 129/072
[2017-10-01] MEDS ORDERED: NAMENDA5 MG PO (13:31)
[2017-10-01] MEDS ORDERED: PERPHENAZINE2 MG PO (13:32)
[2017-10-01 19:41] VITALS: BP 121/58
[2017-10-02 07:37] VITALS: BP 141/58
[2017-10-02 19:30] VITALS: BP 132/81
[2017-10-03 08:44] VITALS: BP 128/63
[2017-10-03 19:30] VITALS: BP 115/86
[2017-10-04 09:16] LABS: INR 3.12 (0.85-1.17); PROTIME 31.3 SECONDS (11.6-15.0)
[2017-10-04 10:50] VITALS: BP 108/58
[2017-10-04 20:33] VITALS: BP 148/87
[2017-10-05 07:00] VITALS: BP 113/65
[2017-10-06 08:35] VITALS: BP 101/49
[2017-10-06 19:56] VITALS: BP 99/46
[2017-10-07 08:49] VITALS: BP 140/074
[2017-10-08 08:00] VITALS: BP 177/66
== END 2017-10-08 10:49 | DRG 57 ==
LOC: D.PSYCH 17:30
PROVIDERS: Family Medicine; Psychiatry & Neurology Psychiatry
PROC: 0T9B70Z Drainage of Bladder with Drainage Device, Via Natural or Artificial Opening (ICD-10-PCS; principal; 2017-09-27)
DX: G30.1 Alzheimer's disease with late onset (principal); F02.81 Dementia in other diseases classified elsewhere, unspecified severity, with behavioral disturbance; N39.0 Urinary tract infection, site not specified; I12.9 Hypertensive chronic kidney disease with stage 1 through stage 4 chronic kidney disease, or unspecified chronic kidney disease; N18.9 Chronic kidney disease, unspecified; M81.0 Age-related osteoporosis without current pathological fracture; E78.5 Hyperlipidemia, unspecified; F41.8 Other specified anxiety disorders; E53.8 Deficiency of other specified B group vitamins; K59.09 Other constipation; Z74.09 Other reduced mobility; I25.10 Atherosclerotic heart disease of native coronary artery without angina pectoris; Z95.5 Presence of coronary angioplasty implant and graft; I69.919 Unspecified symptoms and signs involving cognitive functions following unspecified cerebrovascular disease; I48.91 Unspecified atrial fibrillation

== ENCOUNTER 2017-10-16 14:07 | Emergency (ER) | payer MEDICARE, OTHER ==
[2017-09-25 10:22] VITALS: BMI 18.2
[~2017-10-16 14:07] MED LIST changes: +ERGOCALCIF50000 UNI1 PO; +NAMENDA5 MG PO; +OMNICEF300 MG PO; +PERPHENAZINE2 MG PO
[2017-10-16 15:40] LABS: BASOPHILS 0.4 % (0-2); HEMOGLOBIN 11.3 g/dL (12-16); IMMATURE GRANULOCYTES 0.2 % (0-5); LYMPHOCYTES 29.5 % (15-50); MCHC 31.4 g/dL (31.0-37.0); MCV 105.3 fL (80.0-100.0); MEAN PLATELET VOLUME 9.8 fL (7.4-10.4); MONOCYTES 14.9 % (2-11); PLATELET COUNT 166 10x3/uL (130-400); RBC 3.42 10x6/uL (4.00-5.40); RDW 14.8 % (11.5-14.5)
[2017-10-16 16:14] LABS: INR 3.88 (0.85-1.17); PROTIME 37.2 SECONDS (11.6-15.0)
== END 2017-10-16 18:32 | disposition home or self-care (01) ==
LOC: D.ER 14:07
PROVIDERS: Emergency Medicine
DX: Z00.01 Encounter for general adult medical examination with abnormal findings (principal); F17.200 Nicotine dependence, unspecified, uncomplicated; I12.9 Hypertensive chronic kidney disease with stage 1 through stage 4 chronic kidney disease, or unspecified chronic kidney disease; N18.9 Chronic kidney disease, unspecified

== ENCOUNTER 2017-10-30 11:45 | Emergency (ER) | payer MEDICARE, OTHER ==
[2017-09-25 10:22] VITALS: BMI 18.2
[2017-10-30 12:36] LABS: APPEARANCE CLOUDY (CLEAR); COLOR DK YELLOW (YELLOW)
[2017-10-30 12:37] LABS: BILIRUBIN NEGATIVE (NEGATIVE); GLUCOSE NEGATIVE (NEGATIVE); KETONE NEGATIVE (NEGATIVE); NITRITE POSITIVE (NEGATIVE); PROTEIN 2+ mg/dL (NEGATIVE); UROBILINOGEN NORMAL (NORMAL)
[2017-10-30 12:41] LABS: BACTERIA MANY /hpf (NONE SEEN); RED CELLS - URINE 0-5 /hpf (0-5)
[2017-10-30 12:42] LABS: MUCUS <1+ /lpf (NONE SEEN)
[2017-10-30 13:10] LABS: BASOPHILS 0.1 % (0-2); EOSINOPHILS 2.2 % (0-7); HEMOGLOBIN 11.5 g/dL (12-16); IMMATURE GRANULOCYTES 0.3 % (0-5); MCH 33.6 pg (26.0-34.0); MCHC 31.9 g/dL (31.0-37.0); MCV 105.3 fL (80.0-100.0); MEAN PLATELET VOLUME 9.9 fL (7.4-10.4); MONOCYTES 11.6 % (2-11); NEUTROPHILS 67.8 % (40-80); PLATELET COUNT 166 10x3/uL (130-400); RBC 3.42 10x6/uL (4.00-5.40); RDW 14.9 % (11.5-14.5); WBC 7.8 10x3/uL (4.8-10.8)
[2017-10-30 13:35] LABS: ALBUMIN 2.9 g/dL (3.4-5.0); ANION GAP 15.7 mmol/L (8-16); BILIRUBIN - TOTAL 0.67 mg/dL (0.2-1.3); CALCIUM 8.8 mg/dL (8.5-10.1); CARBON DIOXIDE 24.6 mmol/L (21.0-32.0); CREATININE - SERUM 1.3 mg/dL (0.6-1.3); POTASSIUM - SERUM 3.3 mmol/L (3.5-5.1); PROTEIN - SERUM 6.3 g/dL (6.4-8.2)
== END 2017-10-30 20:07 | disposition home or self-care (01) ==
LOC: D.ER 11:45
PROVIDERS: Emergency Medicine
DX: F03.90 Unspecified dementia, unspecified severity, without behavioral disturbance, psychotic disturbance, mood disturbance, and anxiety (principal); N39.0 Urinary tract infection, site not specified; I48.2 Chronic atrial fibrillation; Z79.01 Long term (current) use of anticoagulants; I12.9 Hypertensive chronic kidney disease with stage 1 through stage 4 chronic kidney disease, or unspecified chronic kidney disease; N18.9 Chronic kidney disease, unspecified; S22.32XA Fracture of one rib, left side, initial encounter for closed fracture; X58.XXXA Exposure to other specified factors, initial encounter; Y93.89 Activity, other specified; Y92.89 Other specified places as the place of occurrence of the external cause; R07.89 Other chest pain